=== PATIENT | female | born 1950 | race Caucasian/White ===

== ENCOUNTER → 2017-09-15 | Outpatient (CLI) | payer BC ==
--- NOTE | 2017-09-16 10:01 | PCVCIMAG ---
APPROVED REPORT Study performed: 09/15/2017 14:11:13 EXAM: Comprehensive 2D, Doppler, and color-flow Echocardiogram Patient Location: Echo lab Status: routine BSA: 1.93 HR: 55 bpmBP: 140/80 mmHg Rhythm: NSR Other Information Study Quality: Technically Limited Indications Diabetes Murmur Hypertension/HDD 2D Dimensions LVEF(%): 68.46 (>50%) IVSd: 8.80 (7-11mm)LVOT Diam: 18.60 (18-24mm) LVDd: 45.21 mm PWd: 9.12 (7-11mm)Ascending Ao: 31.81 (22-36mm) LVDs: 27.97 (25-40mm) Left Atrium: 33.65 (27-40mm) Aortic Root: 25.71 mm LV Single Plane 4CH: 69.96 % LV Single Plane 2CH: 65.50 %Crespo's LVEF: 67.73 % Biplane EF: 67.7 % Volumes Left Atrial Volume (Systole) Single Plane 4CH: 44.85 mLSingle Plane 2CH: 34.21 mL LA ESV Index: 22.00 mL/m2 Aortic Valve AoV Peak Richard.: 2.09 m/s AO Peak Gr.: 17.48 mmHgLVOT Max P.30 mmHg AO Mean Gr.: 8.39 mmHgLVOT Mean P.89 mmHg AO V2 Mean: 1.37 m/sLVOT Max V: 1.44 m/s AO V2 VTI: 48.76 cm RENETTA (VTI): 1.87 [id number] V1 VTI: 33.58 cm RENETTA Vmax: 1.87 cm2 Mitral Valve E/A Ratio: 1.0 MV Decel. Time: 242.46 ms MV E Max Richard.: 0.99 m/s MV A Richard.: 1.02 m/s MV PHT: 70.31 ms IVRT: 96.89 ms TDI E/Lateral E': 8.25E/Medial E': 9.00 Medial E' Richard.: 0.11 m/s Lateral E' Richard.: 0.12 m/s Pulmonary Valve PV Peak Gr.: 4.97 mmHg Tricuspid Valve TR Peak Richard.: 2.93 m/s TR Peak Gr.: 34.23 mmHg Left Ventricle The left ventricle is normal size. There is normal LV segmental wall motion. There is normal left ventricular wall thickness. Left ventricular systolic function is normal. The left ventricular ejection fraction is within the normal range. LVEF is 55-60%. The left ventricular diastolic function is normal. Right Ventricle The right ventricle is normal size. The right ventricular systolic function is normal. Atria The left atrium size is normal. The right atrium size is normal. Aortic Valve The aortic valve is normal in structure. No aortic regurgitation is present. Mild calcification of the leaflets. Mitral Valve The mitral valve is normal in structure. There is no mitral valve regurgitation noted. No evidence of mitral valve stenosis. Tricuspid Valve The tricuspid valve is normal in structure. Trace tricuspid regurgitation. Pulmonary artery pressure is 41mmhg. Pulmonic Valve The pulmonary valve is normal in structure. There is no pulmonic valvular regurgitation. Great Vessels The aortic root is normal in size. IVC is normal in size and collapses with >50% inspiration Pericardium There is no pericardial effusion. <Conclusion> The left ventricle is normal size. LVEF is 55-60%. The aortic valve is normal in structure. Mild calcification of the leaflets. The mitral valve is normal in structure. The tricuspid valve is normal in structure. Trace tricuspid regurgitation. Pulmonary artery pressure is 41mmhg. The pulmonary valve is normal in structure. There is no pericardial effusion.
== END | disposition home or self-care (01) ==
LOC: PCVCIMAG 13:55
PROVIDERS: ATTEND Internal Medicine
DX: I10 Essential (primary) hypertension (principal); E11.9 Type 2 diabetes mellitus without complications; R01.1 Cardiac murmur, unspecified; E78.5 Hyperlipidemia, unspecified; I70.0 Atherosclerosis of aorta
CPT/HCPCS: 93306

== ENCOUNTER → 2018-08-19 | Outpatient (CLI) | payer BC | END | disposition home or self-care (01) | LOC: PCVCCLINIC 13:10 | PROVIDERS: ATTEND Internal Medicine | DX: E78.5 Hyperlipidemia, unspecified (principal); I27.20 Pulmonary hypertension, unspecified; E11.9 Type 2 diabetes mellitus without complications | CPT/HCPCS: 80061 ==

== ENCOUNTER → 2018-08-25 | Outpatient (CLI) | payer BC, MEDICARE ==
--- NOTE | 2018-08-25 13:19 | PCVCIMAG ---
APPROVED REPORT Study performed: 08/25/2018 10:58:48 EXAM: Comprehensive 2D, Doppler, and color-flow Echocardiogram Patient Location: Echo lab Status: routine BSA: 1.96 HR: 60 bpmBP: 140/80 mmHg Rhythm: NSR Other Information Study Quality: Adequate Risk Factors: Cardiac Risk Factors: HTN, Hyperlipidemia Indications Pulmonary hypertension. 2D Dimensions IVSd: 11.95 (7-11mm)LVOT Diam: 19.74 (18-24mm) LVDd: 42.79 mm PWd: 11.89 (7-11mm)Ascending Ao: 34.30 (22-36mm) LVDs: 25.91 (25-40mm) Left Atrium: 41.91 (27-40mm) Aortic Root: 24.57 mm LV Single Plane 2CH: 83.35 % Volumes Left Atrial Volume (Systole) Single Plane 4CH: 34.94 mLSingle Plane 2CH: 34.34 mL LA ESV Index: 18.00 mL/m2 Aortic Valve AoV Peak Richard.: 2.75 m/s AO Peak Gr.: 30.32 mmHgLVOT Max P.22 mmHg AO Mean Gr.: 19.02 mmHgLVOT Mean P.73 mmHg AO V2 Mean: 2.09 m/sLVOT Max V: 1.59 m/s AO V2 VTI: 69.35 cmLVOT Mean V: 1.15 m/s RENETTA (VTI): 1.67 [id number] V1 VTI: 37.82 cm RENETTA Vmax: 1.77 cm2 SV (LVOT): 115.72 mL Mitral Valve E/A Ratio: 1.4 MV Decel. Time: 308.30 ms MV E Max Richard.: 0.98 m/s MV A Richard.: 0.71 m/s IVRT: 65.74 ms TDI E/Lateral E': 8.17E/Medial E': 10.89 Medial E' Richard.: 0.09 m/s Lateral E' Richard.: 0.12 m/s Pulmonary Valve PV Peak Gr.: 5.84 mmHg Pulmonary Vein P Vein S: 0.85 m/sP Vein A: 0.31 m/s P Vein D: 0.69 m/sP Vein A Dur.: 72.7 msec P Vein S/D Ratio: 1.23 Tricuspid Valve TR Peak Richard.: 2.92 m/s TR Peak Gr.: 34.21 mmHg Left Ventricle The left ventricle is normal size. There is normal LV segmental wall motion. There is normal left ventricular wall thickness. Left ventricular systolic function is normal. The left ventricular ejection fraction is within the normal range. LVEF is 60-65%. The left ventricular diastolic function is normal. Right Ventricle The right ventricle is normal size. The right ventricular systolic function is normal. Atria The left atrium size is normal. The right atrium size is normal. Aortic Valve The Aortic valve is sclerotic. Peak gradient is 30mmHg. Mean gradient is 19mmHg. No aortic regurgitation is present. There is no aortic valvular stenosis. Mitral Valve The mitral valve is normal in structure. There is no mitral valve regurgitation noted. No evidence of mitral valve stenosis. Tricuspid Valve The tricuspid valve is normal in structure. Trace tricuspid regurgitation. Pulmonary artery pressure is 41mmHg. Pulmonic Valve The pulmonary valve is normal in structure. There is no pulmonic valvular regurgitation. Great Vessels The aortic root is normal in size. IVC is normal in size and collapses >50% with inspiration. Pericardium There is no pericardial effusion. <Conclusion> The left ventricle is normal size. LVEF is 60-65%. The Aortic valve is sclerotic. Peak gradient is 30mmHg. Mean gradient is 19mmHg. The mitral valve is normal in structure. The tricuspid valve is normal in structure. Trace tricuspid regurgitation. Pulmonary artery pressure is 41mmHg. The pulmonary valve is normal in structure. There is no pericardial effusion.
== END | disposition home or self-care (01) ==
LOC: PCVCIMAG 10:33
PROVIDERS: ATTEND Internal Medicine
DX: I10 Essential (primary) hypertension (principal); I35.0 Nonrheumatic aortic (valve) stenosis; R01.1 Cardiac murmur, unspecified; R06.02 Shortness of breath; G47.33 Obstructive sleep apnea (adult) (pediatric); J98.4 Other disorders of lung; I27.20 Pulmonary hypertension, unspecified; E78.5 Hyperlipidemia, unspecified
CPT/HCPCS: 93306

== ENCOUNTER → 2019-03-03 | Outpatient (CLI) | payer BC, MEDICARE | END | disposition home or self-care (01) | LOC: PCVCCLINIC 13:00 | PROVIDERS: ATTEND Internal Medicine | DX: I25.10 Atherosclerotic heart disease of native coronary artery without angina pectoris (principal); I10 Essential (primary) hypertension; E78.5 Hyperlipidemia, unspecified; G47.33 Obstructive sleep apnea (adult) (pediatric); I27.20 Pulmonary hypertension, unspecified; E11.9 Type 2 diabetes mellitus without complications; J45.909 Unspecified asthma, uncomplicated; Z88.5 Allergy status to narcotic agent; Z87.891 Personal history of nicotine dependence | CPT/HCPCS: 36415; 80061; 93005; G0463 ==

== ENCOUNTER → 2019-08-29 | Outpatient (CLI) | payer BC, MEDICARE | END | disposition home or self-care (01) | LOC: PCVCCLINIC 13:10 | PROVIDERS: ATTEND Internal Medicine | DX: I25.10 Atherosclerotic heart disease of native coronary artery without angina pectoris (principal); I10 Essential (primary) hypertension | CPT/HCPCS: 36415; 80061; 93005; G0463 ==